=== PATIENT | female | born 1985 | race Caucasian/White ===

== ENCOUNTER 2021-10-20 09:37 | Emergency (ER) | payer OTHER ==
[~2021-10-20] VITALS: Ht 154.9 cm; Wt 72.6 kg
[2021-10-20] MEDS ORDERED: CELEXA 20 MG TA20 MG PO (10:08)
[2021-10-20] MEDS ORDERED: ADDERALL XR 2525 MG PO (10:09)
[2021-10-20] MEDS ORDERED: METFORMIN HCL500 M3 PO (10:09)
[2021-10-20] MEDS ORDERED: ZYRTEC10 M4 PO (10:09)
[2021-10-20] MEDS ORDERED: AUGMENTIN 875-1 EACH PO (10:32)
[2021-10-20 11:06] VITALS: BP 135/88
== END 2021-10-20 11:07 | disposition home or self-care (01) ==
LOC: M.ERS 09:37
DX: S00.81XA Abrasion of other part of head, initial encounter (principal); W55.03XA Scratched by cat, initial encounter; Y93.89 Activity, other specified; Y92.89 Other specified places as the place of occurrence of the external cause; Y99.9 Unspecified external cause status